=== PATIENT | female | born 1970 | race Two or more races ===

== ENCOUNTER 2024-03-15 08:23 | Emergency (ER) | payer OTHER ==
[~2024-03-15] VITALS: Ht 160 cm; Wt 75.8 kg
[2024-03-15] MEDS ORDERED: SPIR-10 PO (11:21)
[2024-03-15 11:27] VITALS: BP 120/76; TEMP 97.7; O2SAT 99
== END 2024-03-15 11:28 | disposition home or self-care (01) ==
LOC: M ED 08:23
DX: L70.9 Acne, unspecified (principal); Z87.442 Personal history of urinary calculi; Z88.1 Allergy status to other antibiotic agents; Z88.6 Allergy status to analgesic agent; Z79.83 Long term (current) use of bisphosphonates